=== PATIENT | male | born 1995 | race Caucasian/White ===

== ENCOUNTER 2017-09-01 18:23 | Emergency (ER) | payer BC ==
[2017-09-01] MEDS ORDERED: TYLENOL EXTRA STRENGTH 500 MG PO ONE (20:29)
[2017-09-01] MEDS ORDERED: Sodium Chloride 0.9% 1000 ML 1,000 ML IV STA (20:31)
--- NOTE | 2017-09-01 20:31 | ERPHSYRPT ---
- History of Present Illness Time Seen by Provider: 09/01/17 20:29 Source: patient Exam Limitations: no limitations Patient Subjective Stated Complaint: pt states he has been congested and has generalized shooting pains Triage Nursing Assessment: pt alert and oriented, answers questions approp. pt ambulatory with steady gait noted, respirations nonlabored with lungs cta. skin pink, warm and dry. Physician History: pt states he has been congested and has generalized shooting pains Timing/Duration: today Fever Severity: moderate Fever Therapy [employer]PRESENTATIVE: Ibuprofen Associated Symptoms: headache, muscle aches, sore throat, weakness International travel in last 2 weeks: No Allergies/Adverse Reactions: No Known Drug Allergies Allergy (Verified 09/01/17 20:13) Home Medications: No Reportable Medications [No Reported Medications] 09/01/17 [History] Hx Tetanus, Diphtheria Vaccination/Date Given: Yes Hx Influenza Vaccination/Date Given: No Hx Pneumococcal Vaccination/Date Given: No Immunizations Up to Date: Yes - Review of Systems Constitutional: Fever, Chills Eyes: No Symptoms Ears, Nose, & Throat: No Symptoms Respiratory: No Cough, No Dyspnea Cardiac: No Chest Pain, No Edema, No Syncope Abdominal/Gastrointestinal: No Abdominal Pain, No Nausea, No Vomiting, No Diarrhea Genitourinary Symptoms: No Dysuria Musculoskeletal: No Back Pain, No Neck Pain Skin: No Rash Neurological: No Dizziness, No Focal Weakness, No Sensory Changes Psychological: No Symptoms Endocrine: No Symptoms All Other Systems: Reviewed and Negative - Past Medical History Pertinent Past Medical History: Yes Neurological History: No Pertinent History ENT History: No Pertinent History Cardiac History: No Pertinent History Respiratory History: Asthma Endocrine Medical History: No Pertinent History Musculoskeletal History: No Pertinent History GI Medical History: No Pertinent History History: No Pertinent History Psycho-Social History: No Pertinent History Male Reproductive Disorders: No Pertinent History - Past Surgical History Past Surgical History: Yes Neuro Surgical History: No Pertinent History Cardiac: No Pertinent History Respiratory: No Pertinent History Gastrointestinal: No Pertinent History Genitourinary: No Pertinent History Musculoskeletal: No Pertinent History Male Surgical History: No Pertinent History Other Surgical History: TONSILS ET ADNOIDS - Social History Smoking Status: Never smoker Exposure to second hand smoke: Yes Alcohol Use: None Drug Use: none Patient Lives Alone: No Significant Family History: no pertinent family hx - Nursing Vital Signs Nursing Vital Signs: Initial Vital Signs Temperature 101.0 F 09/01/17 20:03 Pulse Rate 106 H 09/01/17 20:03 Respiratory Rate 18 09/01/17 20:03 Blood Pressure 157/88 09/01/17 20:03 O2 Sat by Pulse Oximetry 97 09/01/17 20:03 Pain Scale Pain Intensity 8 - Physical Exam General Appearance: no apparent distress, alert Eye Exam: PERRL/EOMI ENT Exam: normal ENT inspection, pharyngeal erythema, No tonsillar exudate Neck Exam: supple, full range of motion, No meningismus Respiratory Exam: normal breath sounds, lungs clear, no respiratory distress Cardiovascular/Chest Exam: normal heart sounds, regular rate/rhythm, No murmur, No edema Gastrointestinal/Abdominal Exam: soft, non tender, no distention Extremity Exam: non-tender, normal range of motion, normal inspection, normal capillary refill Neurologic Exam: alert, oriented x 3, cooperative, finance analyst II-XII nml as tested, normal mood/affect, sensation nml, No motor deficits Skin Exam: normal color, warm, dry, No rash SpO2: 97 Oxygen Delivery: Room Air - Course Nursing assessment & vital signs reviewed: Yes Ordered Tests: Active Orders 24 hr Category Date Time Status CBC W DIFF Stat Lab 09/01/17 20:50 Completed CMP Stat Lab 09/01/17 20:50 Completed CULTURE, THROAT Stat Lab 09/01/17 20:50 Received Lactic Acid Stat Lab 09/01/17 20:31 Completed STREP SCREEN-BETA A Stat Lab 09/01/17 20:50 Completed Medication Summary Discontinued Medications Generic Name Dose Route Start Last Admin Trade Name Freq PRN Reason Stop Dose Admin Acetaminophen 1,000 mg 09/01/17 20:29 09/01/17 20:39 Tylenol Extra Strength 500 Mg PO 09/01/17 20:30 1,000 mg STAT ONE Administration Acetaminophen Confirm 09/01/17 20:34 Tylenol Extra Strength 500 Mg Administered 09/01/17 20:35 Dose 1,000 mg .ROUTE .STK-MED ONE Sodium Chloride 1,000 mls @ 999 mls/hr 09/01/17 20:31 09/01/17 20:39 Sodium Chloride 0.9% 1000 Ml IV 09/01/17 21:31 999 mls/hr .Q1H1M STA Administration Sodium Chloride Confirm 09/01/17 20:35 Sodium Chloride 0.9% 1000 Ml Administered 09/01/17 20:36 Dose 1,000 mls @ ud .ROUTE .STK-MED ONE Lab/Rad Data: Laboratory Result Diagrams 09/01/17 20:50 09/01/17 20:50 Laboratory Results 09/01/17 09/01/17 09/01/17 Range/Units 20:50 20:50 20:50 WBC 6.1 (4.0-10.5) K/mm3 RBC 4.99 (4.1-5.6) M/mm3 Hgb 14.1 (12.5-18.0) gm/dl Hct 43.7 (42-50) % MCV 87.6 (78-100) fl MCH 28.3 (26-32) pg MCHC 32.3 (32-36) g/dl RDW 12.4 (11.5-14.0) % Plt Count 162 (150-450) K/mm3 MPV 9.6 H (6-9.5) fl Gran % 66.5 H (36.0-66.0) % Lymphocytes % 20.2 L (24.0-44.0) % Monocytes % 12.7 H (0.0-12.0) % Eosinophils % 0.3 (0.00-5.0) % Basophils % 0.3 (0.0-0.4) % Basophils # 0.02 (0-0.4) Sodium 138 (136-145) mEq/L Potassium 4.0 (3.5-5.1) mEq/L Chloride 100 (98-107) mEq/L Carbon Dioxide 29.2 (21-32) mEq/L Anion Gap 12.8 (5-15) MEQ/L BUN 17 (9-20) mg/dL Creatinine 1.39 H (0.55-1.30) mg/dl Estimated GFR > 60 ML/MIN Glucose 95 (70-110) MG/DL Lactic Acid (0.4-2.0) Calcium 9.2 (8.5-10.1) mg/dL Total Bilirubin 0.30 (0.2-1.0) mg/dL AST 18 (15-37) U/L ALT 19 (12-78) U/L Alkaline Phosphatase 72 (46-116) U/L Serum Total Protein 8.0 (6.4-8.2) gm/dL Albumin 4.0 (3.4-5.0) g/dL Influenza Type A Ag POSITIVE (NEGATIVE) Influenza Type B Ag NEGATIVE (NEGATIVE) RSV (PCR) NEGATIVE (Negative) Streptococcus Screen (Negative) 09/01/17 09/01/17 Range/Units 20:50 20:31 WBC (4.0-10.5) K/mm3 RBC (4.1-5.6) M/mm3 Hgb (12.5-18.0) gm/dl Hct (42-50) % MCV (78-100) fl MCH (26-32) pg MCHC (32-36) g/dl RDW (11.5-14.0) % Plt Count (150-450) K/mm3 MPV (6-9.5) fl Gran % (36.0-66.0) % Lymphocytes % (24.0-44.0) % Monocytes % (0.0-12.0) % Eosinophils % (0.00-5.0) % Basophils % (0.0-0.4) % Basophils # (0-0.4) Sodium (136-145) mEq/L Potassium (3.5-5.1) mEq/L Chloride (98-107) mEq/L Carbon Dioxide (21-32) mEq/L Anion Gap (5-15) MEQ/L BUN (9-20) mg/dL Creatinine (0.55-1.30) mg/dl Estimated GFR ML/MIN Glucose (70-110) MG/DL Lactic Acid 1.2 (0.4-2.0) Calcium (8.5-10.1) mg/dL Total Bilirubin (0.2-1.0) mg/dL AST (15-37) U/L ALT (12-78) U/L Alkaline Phosphatase (46-116) U/L Serum Total Protein (6.4-8.2) gm/dL Albumin (3.4-5.0) g/dL Influenza Type A Ag (NEGATIVE) Influenza Type B Ag (NEGATIVE) RSV (PCR) (Negative) Streptococcus Screen NEGATIVE (Negative) - Progress Progress: unchanged Counseled pt/family regarding: lab results, diagnosis, need for follow-up - Departure Time of Disposition: 22:14 Departure Disposition: Home Clinical Impression: Influenza A Condition: Stable Critical Care Time: No Referrals: DOCTOR,NO FAMILY [Primary Care Provider] - Instructions: Influenza -- Adult Additional Instructions: VIRAL ILLNESS 1. Rest at home and take any prescribed medications as directed or until gone. 2. Offer plenty of fluids as tolerated. 3. Acetaminophen or Ibuprofen as directed. 4. Be sure to follow up with your family physician or return to the emergency department if symptoms change or become worse.
[2017-09-01] MEDS ORDERED: TYLENOL EXTRA STRENGTH 500 MG ONE (20:34)
[2017-09-01] MEDS ORDERED: Sodium Chloride 0.9% 1000 ML 1,000 ML ONE (20:35)
[2017-09-01 20:56] LABS: BASOPHIL % 0.3 % (0.0-0.4); Eosinophil % 0.3 % (0.00-5.0); Granulocytes % 66.5 % (36.0-66.0); Lymphocytes % 20.2 % (24.0-44.0); Mean Cell Volume 87.6 fl (78-100); Mean Corpuscular Hemoglobin 28.3 pg (26-32); Mean Platelet Volume 9.6 fl (6-9.5); Monocytes % 12.7 % (0.0-12.0); Platelet Count 162 K/mm3 (150-450); Red Blood Count 4.99 M/mm3 (4.1-5.6); Red Cell Distribution Width 12.4 % (11.5-14.0); White Blood Count 6.1 K/mm3 (4.0-10.5)
[2017-09-01 21:15] LABS: ALKALINE PHOSPHATASE 72 U/L (46-116); ANION GAP 12.8 MEQ/L (5-15); BLOOD UREA NITROGEN 17 mg/dL (9-20); CHLORIDE 100 mEq/L (98-107); Carbon Dioxide 29.2 mEq/L (21-32); Glucose 95 MG/DL (70-110); SGOT/AST 18 U/L (15-37); SGPT/ALT 19 U/L (12-78); SODIUM 138 mEq/L (136-145)
[2017-09-01 22:47] VITALS: BP 127/88; PULSE 98; O2SAT 98
== END 2017-09-01 22:50 | disposition home or self-care (01) ==
LOC: ED 18:23
DX: J11.1 Influenza due to unidentified influenza virus with other respiratory manifestations (principal); R51 Headache; J02.9 Acute pharyngitis, unspecified
CPT/HCPCS: 36000; 36415; 80053; 83605; 85025; 87070; 87430; 87631; 96360; 99284; A9270-GY